=== PATIENT | male | born 1955 | race Caucasian/White ===

== ENCOUNTER 2016-11-23 19:47 | Inpatient (IN) | payer OTHER ==
[~2016-11-23] VITALS: Ht 188 cm; Wt 91.7 kg
[~2016-11-23 19:47] MED LIST: ACETAMINOPHEN-1 EAC1 PO; AMLODIPINE BESY10 MG PO; CHLORDIAZEPOXID25 MG PO; FOLIC ACID1 MG PO; NICOTINE PATCH1 EAC2 TD; NOHOMEMEDS; NORCO 5/3251 TABLET PO; PRILOSEC20 MG PO; TYLENOL WITH C1 EACH PO; Thiamine,Vitamin B1 PO
[2016-11-23 20:44] LABS: HEMATOCRIT 49.7 % (38.0-50.0); MCH 33.7 PG (29.0-34.0); MCHC 34.6 G/DL (30.0-36.0); MCV 97.3 FL (86-99); PLATELET COUNT 242 K/uL (156-360); RBC DIS.WIDTH-CV 12.7 % (11.8-14.6); RBC DIS.WIDTH-SD 45.8 % (39-53); RED BLOOD COUNT 5.11 M/uL (4.00-5.50); WHITE BLOOD COUNT 16.2 K/uL (4.1-10.2)
[2016-11-23 20:53] LABS: CHLORIDE 106 mEq/L (99-109); SODIUM 141 mEq/L (136-147)
[2016-11-23 20:56] LABS: GLUCOSE 92 mg/dL (70-99)
[2016-11-23 20:57] LABS: ANION GAP 14 MEQ/L (2-14); TOTAL BILIRUBIN 0.4 mg/dL (0.0-1.0)
[2016-11-23 20:59] LABS: ALKALINE PHOSPHATASE 161 IU/L (3-129); GFR ESTIMATE (CALCULATED) > 59 mL/min/; SERUM ETHYL ALCOHOL < 10 mg/dL
[2016-11-23 21:00] LABS: UREA NITROGEN (BUN) 7 mg/dL (9-23)
[2016-11-23 21:03] LABS: LIPASE 506 U/L (1.0-51.0)
[2016-11-23 21:09] LABS: PTT 26.9 (25-32)
[2016-11-23] MEDS ORDERED: TYLENOL EXTRA500 MG PO (21:37)
[2016-11-23 22:13] LABS: ADD MIUA? NO; BILIRUBIN NEGATIVE; BLOOD NEGATIVE; COLOR YELLOW ((YELLOW)); GLUCOSE (STRIP) NEGATIVE; KETONES 5; LEUKOCYTES NEGATIVE; NITRITE NEGATIVE; PROTEIN (STRIP) NEGATIVE; SPECIFIC GRAVITY 1.017 (1.000-1.030); UCUL ADDED? NO; UROBILINOGEN 0.2 MG/DL (0.2-1.0)
[2016-11-23 23:40] VITALS: BP 191/94
[2016-11-24 02:36] VITALS: BP 148/91
[2016-11-24 05:59] LABS: ALKALINE PHOSPHATASE 144 IU/L (3-129); ANION GAP 8 MEQ/L (2-14); CHLORIDE 102 MEQ/L (99-109); GFR ESTIMATE (CALCULATED) > 59 mL/min/; GLUCOSE 89 mg/dL (70-99); POTASSIUM 4.3 MEQ/L (3.7-5.4); SAMPLE HEMOLYSIS CHECK 0; SAMPLE ICTERIC CHECK 0; SAMPLE LIPEMIA CHECK 0; SODIUM 138 MEQ/L (136-147); TOTAL BILIRUBIN 0.7 MG/DL (0.0-1.0); UREA NITROGEN (BUN) 7 mg/dL (9-23)
[2016-11-24 06:20] LABS: BASOPHIL COUNT 0.1 K/uL (0-0.1); EOSINOPHIL (%) 0.3 % (0-5); HEMATOCRIT 45.5 % (38.0-50.0); IMMATURE GRANULOCYTE (%) 0.4 % (0.0-0.7); IMMATURE GRANULOCYTE COUNT 0.1 K/uL; INSTRUMENT ABS NEUTROPHIL CT 10.9 K/uL; LYMPHOCYTE COUNT 1.3 K/uL (1.0-2.8); MCHC 33.2 G/DL (30.0-36.0); MCV 99.6 FL (86-99); MEAN PLAT.VOLUME 10.2 uM^3 (9.0-12.4); MONOCYTE COUNT 0.9 K/uL (0-0.8); NEUTROPHIL (%) 81.8 % (45-76); NEUTROPHIL COUNT 10.9 K/uL (1.8-6.4); PLATELET COUNT 217 K/uL (156-360); RBC DIS.WIDTH-CV 12.9 % (11.8-14.6); RBC DIS.WIDTH-SD 47.5 % (39-53); RED BLOOD COUNT 4.57 M/uL (4.00-5.50); WHITE BLOOD COUNT 13.3 K/uL (4.1-10.2)
[2016-11-24 08:31] VITALS: BP 157/96
[2016-11-24 08:34] VITALS: BP 157/96
[2016-11-24 12:30] VITALS: BP 166/91
[2016-11-24 17:37] VITALS: BP 137/76
[2016-11-24 19:17] VITALS: BP 137/76
== END 2016-11-24 19:30 | disposition left against medical advice (07) | DRG 439 ==
LOC: EME 19:47 → EDOF 22:19 → 5EAST 23:22
PROVIDERS: Emergency Medicine; Nurse Practitioner Family
DX: K85.20 Alcohol induced acute pancreatitis without necrosis or infection (principal); R65.10 Systemic inflammatory response syndrome (SIRS) of non-infectious origin without acute organ dysfunction; K70.10 Alcoholic hepatitis without ascites; F10.239 Alcohol dependence with withdrawal, unspecified; D72.829 Elevated white blood cell count, unspecified; R74.8 Abnormal levels of other serum enzymes; F17.210 Nicotine dependence, cigarettes, uncomplicated
CPT/HCPCS: 74177; 80053; 81003; 83605; 83690; 83735; 85025; 85027; 85610; 85730; 86900; 86901; 87040; 93005; 99281; 99285; C9113; G0480; J1644; J2060; J2270; J2405; J3411; J7030; J7120; S0030

== ENCOUNTER 2017-10-09 12:13 | Inpatient (IN) | payer OTHER ==
[~2017-10-09] VITALS: Ht 188 cm; Wt 89.9 kg
[~2017-10-09 12:13] MED LIST changes: +TYLENOL EXTRA500 MG PO
[2017-10-09 12:59] LABS: HEMATOCRIT 45.3 % (38.0-50.0); HEMOGLOBIN 15.6 G/DL (12.5-16.6); MCH 34.2 PG (29.0-34.0); MCHC 34.4 G/DL (30.0-36.0); MCV 99.3 FL (86-99); PLATELET COUNT 179 K/uL (156-360); RBC DIS.WIDTH-CV 12.8 % (11.8-14.6); RBC DIS.WIDTH-SD 47.3 % (39-53); RED BLOOD COUNT 4.56 M/uL (4.00-5.50); WHITE BLOOD COUNT 10.6 K/uL (4.1-10.2)
[2017-10-09 13:12] LABS: ALBUMIN 3.2 g/dL (3.2-4.8); CHLORIDE 104 mEq/L (99-109)
[2017-10-09 13:13] LABS: POTASSIUM 3.3 mEq/L (3.7-5.4); SODIUM 146 mEq/L (136-147)
[2017-10-09 13:15] LABS: GLUCOSE 109 mg/dL (70-99); TOTAL PROTEIN 6.2 g/dL (6.4-8.3)
[2017-10-09 13:17] LABS: TOTAL BILIRUBIN 0.5 mg/dL (0.0-1.0)
[2017-10-09 13:18] LABS: ALKALINE PHOSPHATASE 196 IU/L (3-129); CREATININE 0.6 mg/dL (0.6-1.3); GFR ESTIMATE (CALCULATED) > 59 mL/min/ (58.99-99999)
[2017-10-09 13:20] LABS: AST (GOT) 138 IU/L (2-34); UREA NITROGEN (BUN) 7 mg/dL (9-23)
[2017-10-09 13:21] LABS: ALT (GPT) 86 IU/L (3-49)
[2017-10-09 13:22] LABS: LIPASE 236 U/L (1.0-51.0)
[2017-10-09 14:59] LABS: TROP-I INTERPRETATION NEGATIVE; TROPONIN-I < 0.01 ng/mL (0.0-0.30)
[2017-10-09 15:10] LABS: APPEARANCE CLEAR ((CLEAR)); BILIRUBIN NEGATIVE; BLOOD NEGATIVE; COLOR YELLOW ((YELLOW)); GLUCOSE (STRIP) NEGATIVE; KETONES 5; LEUKOCYTES NEGATIVE; NITRITE NEGATIVE; PROTEIN (STRIP) NEGATIVE; SPECIFIC GRAVITY 1.016 (1.000-1.030); UCUL ADDED? NO
[2017-10-09 16:17] LABS: SERUM ETHYL ALCOHOL 154 mg/dL
[2017-10-09 18:39] LABS: MAGNESIUM 1.5 mg/dL (1.3-2.7)
[2017-10-09 18:46] LABS: URIC ACID 8.2 mg/dL (3.1-9.2)
[2017-10-10] VITALS (8 sets, daily range): BP systolic 138–185; BP diastolic 74–102
[2017-10-10 06:44] LABS: BASOPHIL (%) 0.3 % (0-1); EOSINOPHIL COUNT 0.1 K/uL (0-0.3); HEMATOCRIT 40.5 % (38.0-50.0); HEMOGLOBIN 13.7 G/DL (12.5-16.6); IMMATURE GRANULOCYTE (%) 0.5 % (0.0-0.7); LYMPHOCYTE (%) 14.2 % (15-42); LYMPHOCYTE COUNT 1.4 K/uL (1.0-2.8); MCH 33.9 PG (29.0-34.0); MCHC 33.8 G/DL (30.0-36.0); MCV 100.2 FL (86-99); MONOCYTE (%) 7.7 % (3-12); MONOCYTE COUNT 0.7 K/uL (0-0.8); NEUTROPHIL (%) 76.3 % (45-76); NEUTROPHIL COUNT 7.3 K/uL (1.8-6.4); PLATELET COUNT 147 K/uL (156-360); RBC DIS.WIDTH-SD 48.4 % (39-53); RED BLOOD COUNT 4.04 M/uL (4.00-5.50); WHITE BLOOD COUNT 9.6 K/uL (4.1-10.2)
[2017-10-10 06:54] LABS: ALBUMIN 2.6 G/DL (3.2-4.8); ALKALINE PHOSPHATASE 147 IU/L (3-129); ALT (GPT) 51 IU/L (3-49); AST (GOT) 70 IU/L (2-34); CHLORIDE 102 MEQ/L (99-109); CREATININE 0.5 MG/DL (0.6-1.3); GFR ESTIMATE (CALCULATED) > 59 mL/min/ (58.99-99999); GLUCOSE 82 mg/dL (70-99); POTASSIUM 3.5 MEQ/L (3.7-5.4); SODIUM 140 MEQ/L (136-147); TOTAL BILIRUBIN 0.9 MG/DL (0.0-1.0); TOTAL PROTEIN 5.1 G/DL (6.4-8.3); UREA NITROGEN (BUN) 5 mg/dL (9-23)
[2017-10-11 05:00] VITALS: BP 152/93
== END 2017-10-11 06:45 | disposition left against medical advice (07) | DRG 439 ==
LOC: EME 12:13 → EDOF 17:40 → 5EAST 17:40 → ENRESERV 17:44 → 5EAST 20:49
PROVIDERS: Hospitalist
DX: K85.20 Alcohol induced acute pancreatitis without necrosis or infection (principal); F10.239 Alcohol dependence with withdrawal, unspecified; Y90.6 Blood alcohol level of 120-199 mg/100 ml; R74.8 Abnormal levels of other serum enzymes; F17.210 Nicotine dependence, cigarettes, uncomplicated; K86.1 Other chronic pancreatitis; K70.10 Alcoholic hepatitis without ascites; J44.9 Chronic obstructive pulmonary disease, unspecified; E87.6 Hypokalemia; I10 Essential (primary) hypertension; L03.114 Cellulitis of left upper limb; M19.90 Unspecified osteoarthritis, unspecified site; K21.9 Gastro-esophageal reflux disease without esophagitis; Z91.19 Patient's noncompliance with other medical treatment and regimen; Z82.49 Family history of ischemic heart disease and other diseases of the circulatory system
CPT/HCPCS: 71046; 73130; 74177; 80053; 81003; 82948; 83690; 83735; 84484; 84550; 85025; 85027; 85652; 86140; 93005; 94799; 99202; 99281; 99285; C9113; G0480; J0690; J1650; J2060; J2270; J2405; J3411; J3480; J7030; J7040; J7050; J7120

== ENCOUNTER 2017-10-17 13:42 | Emergency (ER) | payer OTHER ==
[~2017-10-17] VITALS: Ht 188 cm; Wt 88.6 kg
[2017-10-17 14:27] LABS: HEMATOCRIT 41.4 % (38.0-50.0); HEMOGLOBIN 14.7 G/DL (12.5-16.6); MCH 35.3 PG (29.0-34.0); MCHC 35.5 G/DL (30.0-36.0); MCV 99.5 FL (86-99); PLATELET COUNT 187 K/uL (156-360); RBC DIS.WIDTH-CV 12.6 % (11.8-14.6); RBC DIS.WIDTH-SD 46.5 % (39-53); RED BLOOD COUNT 4.16 M/uL (4.00-5.50); WHITE BLOOD COUNT 11.2 K/uL (4.1-10.2)
[2017-10-17 14:35] LABS: CHLORIDE 101 mEq/L (99-109)
[2017-10-17 14:36] LABS: POTASSIUM 3.7 mEq/L (3.7-5.4); SODIUM 143 mEq/L (136-147)
[2017-10-17 14:37] LABS: GLUCOSE 138 mg/dL (70-99)
[2017-10-17 14:41] LABS: CREATININE 0.7 mg/dL (0.6-1.3); GFR ESTIMATE (CALCULATED) > 59 mL/min/ (58.99-99999); SERUM ETHYL ALCOHOL 120 mg/dL
[2017-10-17 14:42] LABS: UREA NITROGEN (BUN) 10 mg/dL (9-23)
[2017-10-17 14:44] LABS: URIC ACID 6.6 mg/dL (3.1-9.2)
[2017-10-17] MEDS ORDERED: NAPROSYN500 MG PO (16:25)
[2017-10-17 17:08] VITALS: BP 122/76
== END 2017-10-17 17:11 | disposition home or self-care (01) ==
LOC: EME 13:42
PROVIDERS: Physician Assistant
PROC: 2W3LX1Z Immobilization of Right Lower Extremity using Splint (ICD-10-PCS; principal; 2017-10-17)
DX: M79.604 Pain in right leg (principal); M79.605 Pain in left leg; M10.9 Gout, unspecified; W10.9XXA Fall (on) (from) unspecified stairs and steps, initial encounter; F17.210 Nicotine dependence, cigarettes, uncomplicated; K21.9 Gastro-esophageal reflux disease without esophagitis
CPT/HCPCS: 73552; 73590; 73610; 80048; 84550; 85027; 93971; 99281; 99284; G0480